=== PATIENT | female | born 1965 | race African-American/Black ===

== ENCOUNTER → 2016-05-15 | Outpatient (CLI) | payer OTHER ==
--- NOTE | 2016-05-17 06:59 | MM ---
Reason for exam: screening (asymptomatic). Last mammogram was performed 1 year and 1 month ago. History: Patient is postmenopausal and had first child at age 33. Took hormonal contraceptives for 10 years beginning at age 37. Physical Findings: A clinical breast exam by your physician is recommended on an annual basis and results should be correlated with mammographic findings. MG Screening Mammo w CAD Bilateral CC and MLO view(s) were taken. Prior study comparison: April 02, 2015, bilateral MG screening mammo w CAD. January 28, 2014, bilateral MG diagnostic mammo w CAD BEE. August 24, 2010, bilateral digital screening mammo w/CAD. The breast tissue is heterogeneously dense. This may lower the sensitivity of mammography. No significant changes when compared with prior studies. ASSESSMENT: Negative, BI-RAD 1 RECOMMENDATION: Routine screening mammogram of both breasts in 1 year.
== END | disposition home or self-care (01) ==
LOC: RADMAMWWP 16:27
PROVIDERS: ATTEND Family Medicine
DX: Z12.31 Encounter for screening mammogram for malignant neoplasm of breast (principal)

== ENCOUNTER → 2020-01-06 | Day surgery (SDC) | payer BC ==
[2020-01-01 16:00] VITALS: BMI 30.4
[~2020-01-06] MED LIST: LACTATED RINGERS 1,000 ML IV SCH; LIDOCAINE 1% (10MG/ML) FOR IV START INTRADERMA PRN; MIDAZOLAM 2 MG/2 ML VIAL IV PRN; PROPOFOL 10 MG/ML 20 ML VIAL IV ONE
[2020-01-06 08:57] VITALS: TEMP 98.9
--- NOTE | 2020-01-06 09:44 | P.GSHP ---
History of Present Illness H&P Date: 01/06/20 Chief Complaint: colon cancer screening patient here today for colonoscopy. She has not had 1 previously. No bowel complaints. Family history of colon cancer in her sister. Past Medical History Past Medical History: No Reported History History of Any Multi-Drug Resistant Organisms: None Reported Past Surgical History: Section, Cholecystectomy, Orthopedic Surgery Additional Past Surgical History / Comment(s): Bilat feet. Pilonidal cyst exc Past Anesthesia/Blood Transfusion Reactions: No Reported Reaction Smoking Status: Current every day smoker - Past Family History Sister(s) Family Medical History: Cancer Additional Family Medical History / Comment(s): colon cancer Medications and Allergies Home Medications Medication Instructions Recorded Confirmed Type Calcium (Unknown Dose) 1 tab PO DAILY 01/01/20 01/06/20 History Vitamin B (Unknown Dose) 1 tab PO DAILY 01/01/20 01/06/20 History Vitamin C (Unknown Dose) 1 tab PO DAILY 01/01/20 01/06/20 History Vitamin D (Unknown Dose) 1 tab PO DAILY 01/01/20 01/06/20 History Allergies Allergy/AdvReac Type Severity Reaction Status Date / Time No Known Allergies Allergy Verified 01/06/20 08:55 Surgical - Exam Vital Signs Temp Pulse Resp BP Pulse Ox 98.9 F 86 16 128/87 99 01/06/20 08:50 01/06/20 08:50 01/06/20 08:50 01/06/20 08:50 01/06/20 08:50 Physical exam: General: Well-developed, well-nourished HEENT: Normocephalic, sclerae nonicteric Abdomen: Nontender, nondistended Extremities: No edema Neuro: Alert and oriented Assessment and Plan (1) Colon cancer screening Narrative/Plan: Will proceed with colonoscopy Current Visit: Yes Status: Acute Code(s): Z12.11 - ENCOUNTER FOR SCREENING FOR MALIGNANT NEOPLASM OF COLON SNOMED Code(s): 857248857
--- NOTE | 2020-01-06 10:13 | P.PCN ---
Date of Procedure: 01/06/20 Procedure(s) Performed: PREOPERATIVE DIAGNOSIS: colon cancer screening, family history POSTOPERATIVE DIAGNOSIS: small cecal polyp, 2 large polyps descending colon 40 cm, diverticulosis PROCEDURE: Colonoscopy with snare polypectomy and spot injection ANESTHESIA: MAC SURGEON: Almas Mccarty M.D. SPECIMENS: polyps ENDOSCOPIC PROCEDURE: The patient was placed on the endoscopy table in the left decubitus position. The Olympus colonoscope was inserted into the anus and passed under direct visualization to the base of the cecum. The appendiceal orifice was visualized. From that point the scope was slowly withdrawn inspecting all surfaces carefully. There was a small polyp at the base of the cecum that was removed using the snare with cautery technique. The remainder of the cecum and ascending and transverse colon appeared normal. In the descending colon at 40 cm there were 2 polyps seen within a few centimeters of one another. The larger one measured 2 cm the other one measured 1.5 cm. Both had decent stalks. These were both removed using the snare with cautery technique. I performed a spot injection in that area as well. Both were removed from the colon using a Causey net. The rest of the descending sigmoid and rectum appeared normal. The patient did have moderate diverticulosis. Digital rectal examination was normal. The patient was taken to the recovery room in stable condition per anesthesia guidelines. RECOMMENDATIONS: await biopsy results. Will require shorter-term follow-up.
[2020-01-06 10:18] VITALS: RESP 18
[2020-01-06 10:29] VITALS: BP 133/81; PULSE 73
== END ==
LOC: ORWHC2ENDO 08:36 → MERGE 10:05
PROVIDERS: ATTEND Surgery
DX: Z12.11 Encounter for screening for malignant neoplasm of colon (principal); D12.4 Benign neoplasm of descending colon; D12.0 Benign neoplasm of cecum; K57.30 Diverticulosis of large intestine without perforation or abscess without bleeding; Z80.0 Family history of malignant neoplasm of digestive organs; Z90.49 Acquired absence of other specified parts of digestive tract; Z98.890 Other specified postprocedural states; F17.210 Nicotine dependence, cigarettes, uncomplicated
CPT/HCPCS: 88305; 45385; 45381; J2704

== ENCOUNTER → 2020-01-21 | Outpatient (CLI) | payer BC ==
--- NOTE | 2020-01-23 11:12 | MM ---
Reason for exam: screening (asymptomatic). Last mammogram was performed 3 years and 8 months ago. History: Patient is postmenopausal and had first child at age 33. Took hormonal contraceptives for 10 years beginning at age 37. Physical Findings: A clinical breast exam by your physician is recommended on an annual basis and results should be correlated with mammographic findings. MG Screening Mammo w CAD Bilateral CC and MLO view(s) were taken. Prior study comparison: May 15, 2016, bilateral MG screening mammo w CAD. April 02, 2015, bilateral MG screening mammo w CAD. The breast tissue is heterogeneously dense. This may lower the sensitivity of mammography. There is chronic nodularity in the left breast medially. Focal asymmetries are unchanged. No significant changes when compared with prior studies. ASSESSMENT: Benign, BI-RAD 2 RECOMMENDATION: Routine screening mammogram of both breasts in 1 year.
== END | disposition home or self-care (01) ==
LOC: RADMAMWWP 16:20
PROVIDERS: ATTEND Internal Medicine
DX: Z12.31 Encounter for screening mammogram for malignant neoplasm of breast (principal)
CPT/HCPCS: 77067

== ENCOUNTER → 2020-08-19 | Outpatient (CLI) | payer BC ==
--- NOTE | 2020-08-20 07:20 | XR ---
EXAMINATION TYPE: XR chest 2V DATE OF EXAM: 08/19/2020 COMPARISON: NONE HISTORY: Shortness of breath TECHNIQUE: Frontal and lateral views of the chest are obtained. FINDINGS: Scattered senescent parenchymal changes noted. Hyperinflation compatible with COPD. No evidence for infiltrate. No evidence for atelectasis. Heart size is stable. Mediastinal structures are stable and grossly unremarkable. No evidence for hilar prominence. Degenerative changes dorsal spine. IMPRESSION: 1. No evidence for acute pulmonary disease.
== END | disposition home or self-care (01) ==
LOC: RADXRMAIN 17:47
PROVIDERS: ATTEND Internal Medicine
DX: R06.02 Shortness of breath (principal)
CPT/HCPCS: 71046

== ENCOUNTER → 2021-01-24 | Outpatient (CLI) | payer BC ==
--- NOTE | 2021-01-26 10:47 | MM ---
Reason for exam: screening (asymptomatic). Last mammogram was performed 1 year ago. History: Patient is postmenopausal and had first child at age 33. Took hormonal contraceptives for 10 years beginning at age 37. Physical Findings: A clinical breast exam by your physician is recommended on an annual basis and results should be correlated with mammographic findings. MG Screening Mammo w CAD Bilateral CC and MLO view(s) were taken. Prior study comparison: January 21, 2020, bilateral MG screening mammo w CAD. May 15, 2016, bilateral MG screening mammo w CAD. The breast tissue is heterogeneously dense. This may lower the sensitivity of mammography. No significant changes when compared with prior studies. ASSESSMENT: Benign, BI-RAD 2 RECOMMENDATION: Routine screening mammogram of both breasts in 1 year.
== END | disposition home or self-care (01) ==
LOC: RADMAMWWP 10:51
PROVIDERS: ATTEND Internal Medicine
DX: Z12.31 Encounter for screening mammogram for malignant neoplasm of breast (principal); Z78.0 Asymptomatic menopausal state
CPT/HCPCS: 77067

== ENCOUNTER 2021-04-26 07:46 | Day surgery (SDC) | payer BC ==
[2021-04-21 10:51] VITALS: BMI 32.4
[~2021-04-26 07:46] MED LIST changes: -MIDAZOLAM 2 MG/2 ML VIAL IV PRN; -PROPOFOL 10 MG/ML 20 ML VIAL IV ONE
[2021-04-26 08:13] VITALS: TEMP 97
[2021-04-26] MEDS ORDERED: PROPOFOL 10 MG/ML 20 ML VIAL IV ONE (08:49)
--- NOTE | 2021-04-26 08:51 | P.GSHP ---
History of Present Illness H&P Date: 04/26/21 Chief Complaint: Colon polyps 55-year-old female here today for colonoscopy. Last colonoscopy December 2019. Patient had 3 polyps to were large in the descending colon at 40 cm. These were tubulovillous adenomas with high-grade dysplasia. Doing well since her last colonoscopy. No bowel complaints. Past Medical History Past Medical History: No Reported History Additional Past Medical History / Comment(s): hx. numerous colon polyps History of Any Multi-Drug Resistant Organisms: None Reported Past Surgical History: Section, Cholecystectomy, Orthopedic Surgery Additional Past Surgical History / Comment(s): Bilat feet. Pilonidal cyst exc, colonoscopy Past Anesthesia/Blood Transfusion Reactions: No Reported Reaction Smoking Status: Current every day smoker - Past Family History Sister(s) Family Medical History: Cancer Additional Family Medical History / Comment(s): colon cancer Medications and Allergies Home Medications Medication Instructions Recorded Confirmed Type Calcium Carbonate [Calcium] 600 mg PO DAILY 01/01/20 04/21/21 History Biotin 5 mg PO DAILY 04/21/21 04/21/21 History Multivitamins, Thera [Multivitamin 1 tab PO DAILY 04/21/21 04/21/21 History (formulary)] Allergies Allergy/AdvReac Type Severity Reaction Status Date / Time No Known Allergies Allergy Verified 04/26/21 08:09 Surgical - Exam Vital Signs Temp Pulse Resp BP Pulse Ox 97 F L 91 16 155/93 99 04/26/21 08:12 04/26/21 08:12 04/26/21 08:12 04/26/21 08:12 04/26/21 08:12 Physical exam: General: Well-developed, well-nourished HEENT: Normocephalic, sclerae nonicteric Abdomen: Nontender, nondistended Extremities: No edema Neuro: Alert and oriented Assessment and Plan (1) Colon polyp Narrative/Plan: Will proceed with colonoscopy at this time Current Visit: Yes Status: Acute Code(s): K63.5 - POLYP OF COLON SNOMED Code(s): 13120488
--- NOTE | 2021-04-26 09:06 | P.PCN ---
Date of Procedure: 04/26/21 Procedure(s) Performed: PREOPERATIVE DIAGNOSIS: History of polyps POSTOPERATIVE DIAGNOSIS: Diverticulosis PROCEDURE: Colonoscopy ANESTHESIA: MAC SURGEON: Almas Mccarty M.D. SPECIMENS: None ENDOSCOPIC PROCEDURE: The patient was placed on the endoscopy table in the left decubitus position. The Olympus colonoscope was inserted into the anus and passed under direct visualization to the base of the cecum. The appendiceal orifice was visualized. From that point the scope was slowly withdrawn inspecting all surfaces carefully. There were no neoplastic inflammatory or polypoid lesions throughout the cecum, ascending, transverse, descending, sigmoid and rectum. There was mild scattered diverticulosis noted. At 40 cm there was evidence of tattooing but again no residual polypoid tissue noted. Digital rectal examination was normal. The patient was taken to the recovery room in stable condition per anesthesia guidelines. RECOMMENDATIONS: Resume diet. Follow-up colonoscopy 3-5 years.
[2021-04-26] MEDS ORDERED: IV FLUID CONTINUATION 1,000 ML IV ONE (09:08)
[2021-04-26 09:28] VITALS: BP 136/92; PULSE 74; RESP 15
== END 2021-04-26 09:49 | disposition home or self-care (01) ==
LOC: ORWHC2ENDO 07:46
PROVIDERS: ATTEND Surgery
DX: K57.90 Diverticulosis of intestine, part unspecified, without perforation or abscess without bleeding (principal); Z86.010 Personal history of colon polyps
CPT/HCPCS: 45378; J2704

== ENCOUNTER → 2023-01-26 | Outpatient (CLI) | payer BC ==
--- NOTE | 2023-01-26 20:28 | BD ---
EXAMINATION TYPE: Axial Bone Density DATE OF EXAM: 01/26/2023 CLINICAL HISTORY: 57 years old Female. ICD-10 CODE: N95.1 POST MENOPAUSAL,M85.88 DISORDER OF BONE Height: 64.3 Weight: 193 FRAX RISK QUESTIONS: Secondary Osteoporosis: yes 3. Menopause before 45: yes Current Tobacco Use: yes RISK FACTORS HISTORY OF: Postmenopausal woman: yes, just before 46 yrs old Lost more than 2 inches in height since high school: yes Hyperparathyroidism: no Adrenal Insufficiency: no MEDICATIONS: Additional Medications: vit d and calcium only Additional History: nothing to note here EXAM MEASUREMENTS: Bone mineral densitometry was performed using the [employer] System. Bone mineral density as measured about the Lumbar spine is: ----- L1-L4(G/cm2): 1.364 T Score Values are as follows: ----- L1: 1.1 ----- L2: 1.3 ----- L3: 2.0 ----- L4: 1.5 ----- L1-L4: 1.5 Z Score Values are as follows: ----- L1: 0.6 ----- L2: 0.8 ----- L3: 1.4 ----- L4: 0.9 ----- L1-L4: 1.0 Bone mineral density is her first bone density study today. Bone mineral density about the R hip (g/cm2): 1.189 Bone mineral density about the L hip (g/cm2): 1.250 T Score values are as follows: -----R Neck: 0.4 -----L Neck: 0.2 -----R Total: 1.4 -----L Total: 1.9 Z Score values are as follows: -----R Neck: 0.1 -----L Neck: -0.1 -----R Total: 0.6 -----L Total: 1.1 Bone mineral density is a baseline study. FRAX%s: The graph provided illustrates a 2.1% chance for a major osteoporotic fx and a 0.1% chance fo r the hips probability for fx in 10 years time. IMPRESSION: Normal (Values between +1 and -1 indicate normal bone mass). Consider repeating this study in 5 year s or sooner if there is some new clinical indication. NOTE: T-SCORE=SD OF THE YOUNG ADULT MEAN.
--- NOTE | 2023-01-29 16:02 | MM ---
Reason for Exam: Screening (asymptomatic). Last screening mammogram was performed 12 month(s) ago. Patient History: Menarche at age 14. First Full-Term at age 33. Late child-bearing (after 30). Postmenopausal. Hormonal Contraceptives for 10 years from age 37 until age 47. Risk Values: Mary 5 year model risk: 1.4%. NCI Lifetime model risk: 7.7%. Prior Study Comparison: 04/02/2015 Bilateral Screening Mammogram, [facility]. 05/15/2016 Bilateral Screening Mammogram, [facility]. 01/21/2020 Bilateral Screening Mammogram, [facility]. 01/24/2021 Bilateral Screening Mammogram, [facility]. 01/25/2022 Bilateral MG screening mammo w CAD, [facility]. Tissue Density: The breast tissue is heterogeneously dense. This may lower the sensitivity of mammography. Findings: Analyzed By CAD. Pattern appears symmetrical and stable. No significant interval changes are evident. No suspicious groups of microcalcifications, spiculated or lobular masses, architectural distortion or other secondary signs of malignancy are mammographically apparent. Overall Assessment: Benign, BI-RAD 2 Management: Screening Mammogram of both breasts in 1 year. A negative mammogram report should not preclude additional follow up of suspicious palpable abnormalities. Patient should continue monthly self breast exam. A clinical breast exam by your physician is recommended on an annual basis and results should be correlated with mammographic findings. Electronically signed and approved by: Kevin Dominguez D.O. Radiologis
== END | disposition home or self-care (01) ==
LOC: RADMAMWWP 08:48
PROVIDERS: ATTEND Internal Medicine
DX: Z12.31 Encounter for screening mammogram for malignant neoplasm of breast (principal); M85.88 Other specified disorders of bone density and structure, other site; Z78.0 Asymptomatic menopausal state
CPT/HCPCS: 77067; 77080